=== PATIENT | female | born 1945 | race Caucasian/White ===

== ENCOUNTER → 2016-05-08 | Outpatient (CLI) | payer OTHER ==
[~2016-05-08] MED LIST: CAPOZIDE PO; LOPID600 MG PO; METFORMIN PO; TOPROL XL100 MG PO
--- NOTE | ~2016-05-08 | MY11 ---
[facility] A Service of [facility] RADIOLOGY TEXT RESULTS PATIENT: SAUD CAR LOCATION: [facility] : 47 UNIT #: [id number] AGE: [address]: Norma Richardson MD SEX: F ORDER DR: [id number] [facility] [address]. [place], [place] [address] [id number] O MR#: [id number] Acc #: [id number] NAME: SAUD CAR : 1945 SEX: F STUDY DATE/TIME: 05/08/2016 9:11 UNIT: [facility] ROOM: STUDY DESCRIPTION: MY Mammogram Screening Dig Mohamud Attending Physician: Norma Richardson M.D. Referring Physician: Norma Richardson M.D. Ordering Physician: Norma Richardson M.D. Primary Care Physician: Norma Richardson M.D. MEDICAL IMAGING REPORT This report is preliminary unless electronic signature is present EXAM Screening mammogram 05/08/2016. INDICATIONS 70 year old with no personal or family history of breast cancer. No current complaints. TECHNIQUE Routine digital screening views of both breasts were obtained. Study reviewed with an FDA-approved CAD device. COMPARISON Comparison is made with 03/10/2015, 12/22/2013. FINDINGS Breast parenchyma shows scattered fibroglandular densities. No new masses or suspicious microcalcifications are seen. Benign calcifications in both breasts are stable. IMPRESSION Benign mammogram. Routine screen 1 year recommended. Patients over the age of 40 are entered into a reminder system with target due date for the next mammogram. A result letter will be sent to the patient. BIRADS: 2 Benign findings. Dictated by... Deacon Barksdale Jr., M.D. THIS IS AN ELECTRONICALLY VERIFIED REPORT Deacon Barksdale Jr., M.D. at 05/08/2016 12:31 PM [facility] A Service of [facility] RADIOLOGY TEXT RESULTS PATIENT: SAUD CAR LOCATION: [facility] : 47 UNIT #: [id number] AGE: [address]: Norma Richardson MD SEX: F ORDER DR: ROSIE/juan TD: 05/08/2016 12:14 JOB #: [id number] MEDICAL IMAGING REPORT COPY
== END | disposition home or self-care (01) ==
LOC: CWCC 08:48
DX: Z12.31 Encounter for screening mammogram for malignant neoplasm of breast (principal)
CPT/HCPCS: G0202